=== PATIENT | male | born 1995 | race Caucasian/White ===

== ENCOUNTER 2018-02-18 12:01 | Inpatient (IN) | payer OTHER ==
[2018-02-18] VITALS (9 sets, daily range): BP systolic 156–177; BP diastolic 80–116
[~2018-02-18] VITALS: Ht 177.8 cm; Wt 57.2 kg
[~2018-02-18 12:01] MED LIST: NORCO 5-325 TA1 EACH PO
[2018-02-18 13:44] LABS: ABSOLUTE NEUTROPHILS 16.9 thou/uL (1.4-8.2); BASOPHILS 0.2 % (0.0-2.0); EOSINOPHILS 0.2 % (0.0-3.0); HEMOGLOBIN 16.3 gm/dL (14.0-18.0); LYMPHOCYTES 7.3 % (24.0-44.0); MCH 33.5 pg (26.0-34.0); MCHC 34.7 g/dL (28.0-37.0); MCV 96.6 fL (80.0-100.0); MONOCYTES 5.4 % (1.0-8.0); PLATELET COUNT 265 thou/uL (150-400); POLYS 86.9 % (36.0-66.0); RBC 4.87 mil/uL (4.50-6.00); RDW 12.3 % (10.5-14.5); WBC 19.4 thou/uL (4.0-11.0)
[2018-02-18 13:47] LABS: ANION GAP 15 mmol/L (7-16); BUN 14 mg/dL (7-18); CALCIUM 9.9 mg/dL (8.5-10.1); CHLORIDE 96 mmol/L (98-107); CO2 24 mmol/L (21-32); CREATININE 1.1 mg/dL (0.7-1.3); GLUCOSE 212 mg/dL (74-106); POTASSIUM 3.9 mmol/L (3.5-5.1); SODIUM 135 mmol/L (136-145)
[2018-02-18 13:53] LABS: ALBUMIN 4.6 g/dL (3.4-5.0); LIPASE 77 U/L (73-393); MAGNESIUM 2.2 mg/dL (1.8-2.4); SALICYLATE < 2.8 mg/dL (2.8-20.0); SGOT 51 U/L (15-37); SGPT 39 U/L (30-65); TOTAL BILIRUBIN 1.2 mg/dL (<0.1-1.0); TOTAL PROTEIN 8.4 g/dL (6.4-8.2)
[2018-02-18 14:23] LABS: URINE BILIRUBIN NEGATIVE (Negative); URINE BLOOD TRACE (Negative); URINE CLARITY CLEAR; URINE COLOR YELLOW; URINE GLUCOSE-RANDOM* TRACE (Negative); URINE KETONES TRACE (Negative); URINE LEUKOCYTES-REFLEX NEGATIVE (Negative); URINE NITRITE-REFLEX NEGATIVE (Negative); URINE PROTEIN (DIPSTICK) 1+ (Negative); URINE SPECIFIC GRAVITY > 1.030 (1.005-1.035); URINE UROBILINOGEN 0.2 E.U./dl (0.2-1.0)
[2018-02-18 14:33] LABS: AMP/METHAMP Negative (Negative); BARBITURATES Negative (Negative); BENZODIAZEPINES Negative (Negative); COCAINE Negative (Negative); CRYSTALS None Seen /LPF (None Seen); METHADONE Negative (Negative); OPIATES POSITIVE (Negative); PCP Negative (Negative); SQUAMOUS None Seen /LPF (0-3)
[2018-02-18 14:34] LABS: BACTERIA-REFLEX 1-9 Few /HPF (None Seen); HYALINE CASTS 0-3 Few /LPF (None Seen); URINE RBC 0-2 Rare /HPF (0-2); URINE WBC-REFLEX None Seen /HPF (0-5)
[2018-02-18 15:21] LABS: PHOSPHORUS 3.8 mg/dL (2.5-4.9)
[2018-02-18 16:13] LABS: FOLIC ACID > 100.0 ng/mL (8.6-58.9)
--- NOTE | 2018-02-18 16:15 | NUR ---
ADMIT NOTE PT HAS DILOCATION OF BILATERAL SHOULDERS AND SEIZURE STATUS POST DRINKING 6-7 BEERS DAILY FOR PAST 3 MONTHS. CONSULTS PLACED ORDER. LUNGS ARE CLEAR. ON ROOM AIR. SINUS TACHYCARDIA ON THE MONITOR. BLOOD PRESSURE ELEVATED. NOTIFIED ADMITING DOCTOR OF BLOOD PRESSURE. SCDS ON BILATERAL. FALL SOCKS ON AND FALL BAND ON PT AT THIS TIME. PADDED SIDE RAILS. CALL LIGHT WITHIN REACH IF NEEDS ASSISTANCE. WILL CONTINUE TO ASSESS AND MONITOR FOR ALCOHOL WITHDRAWL PER SCALE PER NURSING AT THIS TIME. WILL KEEP NPO AT THIS TIME FOR SURGERY
--- NOTE | 2018-02-18 17:14 | NUR ---
TAKEN TO OR ROOM FOR SURGERY. PT'S FATHER ACCOMPANYING PT TO WAITING AREA.
--- NOTE | 2018-02-18 19:30 | NUR ---
Pt is back to room S/P Closed reduction bilateral shoulders dislocation. AAOx4, no s/sx of any distress indicates. Both shoulder are swelling. Rt more than left. Arm slings in used. Ice packs applied to both shoulder for comfort. Denies of any pain upon arrival. CIWA 3 upon arrival,report last drank was a couple days ago. Seizer precaution inplace. Continue to monitor any changes.
[2018-02-19] VITALS (19 sets, daily range): BP systolic 118–185; BP diastolic 68–93
--- NOTE | 2018-02-19 01:30 | NUR ---
Pt 's HR went up ton 140's to 150's with activity noted. Denies symptoms. BP elevated. He was given hydralazine earlier with very little effects. Will notify [facility].
[2018-02-19 03:48] LABS: HEMATOCRIT 37.4 % (42.0-52.0); MCHC 34.3 g/dL (28.0-37.0); MCV 96.3 fL (80.0-100.0); RBC 3.89 mil/uL (4.50-6.00); RDW 12.3 % (10.5-14.5); WBC 11.4 thou/uL (4.0-11.0)
[2018-02-19 03:59] LABS: HEMOGLOBIN 12.8 gm/dL (14.0-18.0)
[2018-02-19 04:04] LABS: ALBUMIN 3.5 g/dL (3.4-5.0); CREATININE 0.8 mg/dL (0.7-1.3); MAGNESIUM 1.8 mg/dL (1.8-2.4); TOTAL BILIRUBIN 1.1 mg/dL (<0.1-1.0); TOTAL PROTEIN 6.6 g/dL (6.4-8.2)
--- NOTE | 2018-02-19 06:07 | NUR ---
No changes from last assessment. Continue to monitor any changes.
--- NOTE | 2018-02-19 06:10 | NUR ---
Pt's BP ahd HR has improved after Lopressor IV. CIWA 4 this am. No seizure activity noted in this shift.
--- NOTE | 2018-02-19 08:04 | HC ---
[facility] [place] [address] CONSULTATION Name: MUKUND CRAMER Room #: 246-P ADM IN M.R.#: [id number] Admission: 02/18/18 Attend Phys: Robert Lewis MD Discharge: Date of : 89 Report #: [id number] THIS REPORT FOR: //name// CC: ANJELICA physician/PCP Robert Lewis DATE OF SERVICE: 02/18/2018 CHIEF COMPLAINT: Bilateral shoulder dislocation. HISTORY OF PRESENT ILLNESS: This 22-year-old gentleman apparently had a seizure today as a result of alcohol withdrawal. Subsequently, he has bilateral shoulder pain and x-rays in the Emergency Department confirmed bilateral anterior shoulder dislocation. He has had one dislocation on the right side for a similar seizure about 6 months ago. He has not had previous shoulder injuries. At the time of my evaluation, he is alert and oriented and accompanied by his father. We have discussed his history and current findings. I have explained that there does appear to be greater tuberosity fractures on the right side and possibly as well on the left. I think closed reduction under brief anesthetic will be most appropriate. I would suggest doing this in the operating room, where we have better control given his recent seizures. Clinically, both shoulders are obviously dislocated anteriorly with some deformity. Neurologic and vascular status of both upper extremities seems to be normal. He denies any other areas of discomfort and in general, the clinical exam involving the neck, back and both lower extremities appear to be normal. X-rays of both shoulders confirm anterior dislocation with some impaction fracture, consistent with Hill-Sachs deformity and possibly greater tuberosity fracture on the right side. Pending OR availability and anesthesia consultation, our plan is to go ahead with bilateral shoulder reduction under anesthesia today. <ELECTRONICALLY SIGNED> By: Tu Taylor MD 02/19/18 0804 [id number] 0016 Tu Taylor MD /nt
--- NOTE | 2018-02-19 08:04 | O ---
[facility] [place] [address] OPERATIVE REPORT Name: MUKUND CRAMER Room #: 246-P ADM IN M.R.#: [id number] Admission: 02/18/18 Attend Phys: Robert Lewis MD Discharge: Date of : 89 Report #: [id number] THIS REPORT FOR: //name// CC: [facility] physician/PCP Robert Lewis DATE OF SERVICE: 02/18/2018 PREOPERATIVE DIAGNOSIS: Bilateral shoulder dislocation. POSTOPERATIVE DIAGNOSIS: Bilateral shoulder dislocation. PROCEDURE: Closed reduction, bilateral shoulder dislocation under anesthesia. SURGEON: Tu Taylor M.D. INDICATIONS: This 22-year-old gentleman apparently developed a seizure as a result of alcohol withdrawal. This resulted in bilateral shoulder dislocation. We have elected to go ahead with reduction under anesthesia. PROCEDURE: The patient was placed under deep sedation with propofol and narcotics. A satisfactory relaxation was accomplished. Both shoulders were then gently manipulated. Reduction was accomplished, but with some difficulty, consistent with probable impaction Hill-Sachs deformities in both shoulders. Using C-arm for visualization, both shoulders were reduced in a satisfactory fashion. Both arms were then protected with arm sling protection. The patient was then awakened and returned to the recovery room in satisfactory condition. <ELECTRONICALLY SIGNED> By: Tu Taylor MD 02/19/18 0804 [id number] 0020 Tu Taylor MD /nt
--- NOTE | 2018-02-19 09:10 | NUR ---
Assess due to low BMI 18.2. Admitted with bilateral shoulder dislocation, seizure activity and etoh abuse. Currently in ICU, sleeping and unable to respond to any questions. NPO, for surgical intervention. Unsure of wt or intake hx. Has orders for vitamin and thiamine, and psych consult. Low nutrition risk at this time. Follow for timely diet advance.
[2018-02-19] MEDS ORDERED: PEPCID20 MG PO (13:47)
[2018-02-19] MEDS ORDERED: NORCO 5-325 TA1 EACH PO (13:48)
--- NOTE | 2018-02-19 17:00 | NUR ---
Met with patient who is 22 lives with his father, and grandmother. Patient admits with seizure ETOH withdraw. Sp with Dr Bello who reports patient not interested in AA/ETOH tx programs at this time. Plan to place numbers in dc instructions for patient. Patient to f/u with ortho on outpatient basis for shoulder dislocation. Patient currently no working. Lost his job 3 days before vernon. Patient given safety net clinic information.
[2018-02-20] VITALS (14 sets, daily range): BP systolic 114–138; BP diastolic 72–96
--- NOTE | 2018-02-20 01:06 | NUR ---
ASSUMED CARE OF PT AT 1900. PT RESTLESS AT THE TIME-TOSSING AND TURNING IN BED. PT APPEARS SOMEWHAT ANXIOUS, BUT STATES THAT HE IS FINE. CIWA SCORE EVALUATED Q4H, HIGHEST CIWA THIS SHIFT IS 6. PT GIVEN ATIVAN 1 MG X1 PO. BP STABLE; HEART RHYTHM IS SINUS RHYTHM, EXCEPT WITH ACTIVITY, PT BECOMES TACHYCARDIC. PT HAS SOME DISCOMFORT IN SHOULDERS, BUT DENIES ANY PAIN. PT WILL MOST LIKELY DC TOMORROW. PT ALREADY HAS DC ORDERS, BUT PSYCH RECOMMENDED HE STAY ANOTHER NIGHT SINCE PT HAD BEEN GETTING LOTS OF IV ATIVAN. PT HAS NOT HAD IV ATIVAN SINCE 1400 YESTERDAY AND HAS ONLY HAD ONE DOSE OF PO ATIVAN SINCE THEN. WILL CONTINUE TO MONITOR.
--- NOTE | 2018-02-20 04:56 | NUR ---
AROUND 0230, PT WOKE UP CONFUSED AND DISORIENTED. HE DID NOT KNOW WHERE HE WAS OR HOW HE GOT HERE. PT WAS REORIENTED, BUT WAS STILL CONFUSED BY HIS SURROUNDINGS. HE BECAME SOMEWHAT AGITATED AND GOT OUT OF BED AND WANTED TO GET SOMETHING OUT OF THE CABINET. PT FINALLY GOT BACK IN BED AND GIVEN A DOSE OF ATIVAN. CIWA WAS 11. BY 0400, PT WAS ORIENTED AGAIN WITH MINIMAL CONFUSION. CIWA WAS 4. PT IS NOW RESTING CALMLY IN BED. WILL CONTINUE TO MONITOR.
[2018-02-20 06:07] LABS: CALCIUM 8.9 mg/dL (8.5-10.1); CREATININE 0.8 mg/dL (0.7-1.3); MAGNESIUM 1.8 mg/dL (1.8-2.4); PHOSPHORUS 3.4 mg/dL (2.5-4.9); POTASSIUM 3.5 mmol/L (3.5-5.1)
--- NOTE | 2018-02-20 13:00 | NUR ---
PT CARE ASSUMED 1245 UPON TRASFER FROM ICU. PT ALERT AND ORIENTED X4. DENIES PAIN AND SOA. SR ON DIRECTOR GOVERNMENT. VSS. NO ANXIETY OR CONFUSION NOTED AT THIS TIME. PT DENIES NAUSEA, NO NOTED TREMORS OR HALLUCINATIONS AT THIS TIME. UP WITH STEADY GAIT BUT WILL MAINTAIN SBA FOR SAFETY. IV NS RESUMED. PT APPETITE GOOD.
--- NOTE | 2018-02-20 13:52 | NUR ---
ASSUMED CARE OF PATIENT AT 0700, PT IS A/O TIMES FOUR, PT CONT ON CIWA PROTOCOL. PT WITH ST ON THE MONTIOR. ORDERS RCVD TO TRANSFER PT OUT OF ICU. REPORT CSLLED AND GIVE TO RECIEVING NURSE.
--- NOTE | 2018-02-20 17:02 | NUR ---
PT VS REMAIN WNL. PT DENIES PAIN AND SOA. CALLING FOR ASSISTANCE APPROPRIATELY. NO ISSUES OR DISTRESS NOTED.
[2018-02-21 03:58] VITALS: BP 135/91
--- NOTE | 2018-02-21 04:07 | NUR ---
SLEPT MOST OF SHIFT. ASSISTED UP TO BATHROOM WITH STEADY GAIT. MAINTAIN SAFE ENVIRONMENT. CWAW REMAINS 0. DENIES COMPLAINTS OF PAIN OR AGITATION. PATIENT CALM AND COOPERATIVE. NO TREMORS NOTED. TELEMETRY SHOWS SR, BUT WHEN UP TO BATHROOM OR USING URINAL ST 110-130'S. QUICKLY RECOVERS WHEN BACK TO BED. WORKING ON GOALS AND PLAN OF CARE FOR NOC. PROGRESSING SLOWLY TOWARDS DISCHARGE GOALS. CONTINUE TO ASSES CLOESLY.
[2018-02-21 08:09] VITALS: BP 119/84
[2018-02-21 11:48] VITALS: BP 119/87
--- NOTE | 2018-02-21 13:29 | NUR ---
PT IS MEETING LISTED POC GOALS. NO C/O OF PAIN, N/V, OR DISCOMFORT THIS SHIFT. CIWA IS 0. IVF AND MONITOR DISCONTINUED. PT DISCHARGED HOME AFTER INSTRUCTIONS AND PRESCRIPTIONS GIVEN. PT EXPRESSES UNDERSTANDING OF DISCHARGE INSTRUCTIONS AND FOLLOW UP. PT DISCHARGED OFF OF UNIT AT 1330.
== END 2018-02-21 13:35 | disposition home or self-care (01) | DRG 512 ==
LOC: ER 12:01 → EROBS 14:29 → ICU 15:25 → 3W 02-20 12:57
PROVIDERS: Emergency Medicine; ADMIT Internal Medicine
DX: S43.004A Unspecified dislocation of right shoulder joint, initial encounter (principal); S43.005A Unspecified dislocation of left shoulder joint, initial encounter; F12.90 Cannabis use, unspecified, uncomplicated; F10.10 Alcohol abuse, uncomplicated; F17.210 Nicotine dependence, cigarettes, uncomplicated; I10 Essential (primary) hypertension; D72.829 Elevated white blood cell count, unspecified; W07.XXXA Fall from chair, initial encounter; Y93.89 Activity, other specified; Y92.89 Other specified places as the place of occurrence of the external cause; Y99.8 Other external cause status; Z28.21 Immunization not carried out because of patient refusal
CPT/HCPCS: 10078; 10779; 50010; 50101; 62110; 62900; 70005

== ENCOUNTER 2018-03-13 05:45 | Day surgery (SDC) | payer SELFPAY ==
[~2018-03-13] VITALS: Ht 177.8 cm; Wt 61.2 kg
--- NOTE | ~2018-03-13 | O ---
[facility] [place] [address] OPERATIVE REPORT Name: MUKUND CRAMER Room #: 150-6 [facility] M.R.#: [id number] Admission: 03/13/18 Attend Phys: Patric Wynne Discharge: Date of : 89 Report #: [id number] THIS REPORT FOR: //name// CC: ANJELICA physician/PCP Patric Restrepo DATE OF SERVICE: 03/13/2018 PREOPERATIVE DIAGNOSES: Right shoulder fracture dislocation, Bankart lesion, large engaging Hill-Sachs lesion and greater tuberosity fracture. POSTOPERATIVE DIAGNOSES: Right shoulder fracture dislocation following seizure with large engaging Hill-Sachs lesion of humeral head, bony Bankart lesion and glenoid bone loss of the anterior glenoid, extensive anterior labral tear, greater tuberosity fracture and intra-articular loose bodies. PROCEDURES PERFORMED: Right shoulder arthroscopy, anterior labral repair with capsular plication, remplissage of Hill-Sachs lesion of humeral head, extensive debridement, removal of loose bodies and closed reduction of glenohumeral joint. SURGEON: Patric Restrepo M.D. MANAGER DEVELOPMENT: Carol Calvo PA-C. ANESTHESIA: General with preoperative ultrasound-guided interscalene block. FLUIDS: 800 mL of crystalloid. ESTIMATED BLOOD LOSS: Negligible. DESCRIPTION OF PROCEDURE: After proper identification of the patient and operative site in the preoperative holding area, the operative site was signed by myself. Prophylactic antibiotics given. The patient elected to receive an ultrasound-guided interscalene block by Dr. Nunez after reviewing the risks, benefits, alternatives and complications with anesthesia. Preoperatively, it was noted the patient had paresthesias of the more posterior and lateral shoulder. His motion was limited due to pain and has dislocation that had been present for the last several weeks. He reported intact sensation distally and I was able to minimally flex and extend his fingers and wrist. After a satisfactory block, he was brought back to the operative suite. After induction of satisfactory general anesthesia, his right shoulder was closed reduced. There was a propensity for it to want to externally rotate and fall back into a dislocated position anteriorly. The left shoulder remained reduced and he was carefully positioned in the left lateral decubitus position. Guzman bag and extra roll were utilized to support the torso. Right shoulder was [address] [address] OPERATIVE REPORT Name: MUKUND CRAMER Room #: 150-6 [facility] Nara#: [id number] Admission: 03/13/18 Attend Phys: Patric Wynne Discharge: Date of : 89 Report #: [id number] sterilely prepped and draped in the usual manner and placed in 10 pounds of balanced arthroscopic suspension. Posterior portal was established. Joint was inflated with an arthroscopic pump set at 40 mmHg. Hemarthrosis was carefully evacuated. An anterior-superior portal was created as well as an anterior-inferior portal. Examination of the glenohumeral joint revealed a large engaging Hill-Sachs lesion with pronounced impaction. There was anterior glenoid bone loss with approximately 2 mm of bone noted anterior to the bare spot. The patient had a displaced and medialized labral tear with some resultant bony remnants and tissues as well as multiple intra-articular bony and chondral loose bodies that were removed. Loose chondral flaps and fibrillation along the anterior glenoid rim as well as superiorly along the humeral head were carefully debrided. Long head of biceps tendon appeared intact. Subscapularis appeared intact. The greater tuberosity fracture which had mild displacement noted on the preoperative radiographs appeared to be stable with probing and reasonably well positioned with the arthroscopic visualization. At this point, the anterior labrum extending inferiorly was carefully released from its medialized position. The anterior glenoid neck and labrum were carefully debrided of the fibrillated soft tissues. This was able to be mobilized both laterally and superiorly, and a total of four 2.9-mm SwiveLock anchors with FiberTape were utilized starting inferiorly while mobilizing the labrum both superiorly and laterally. This was reduced to the anterior glenoid neck nicely. The anterior band of the inferior glenohumeral ligament was captured with the inferior 2 sutures to try and plicate this. Again there was a thin glenoid rim inferiorly. Posteriorly, the posterior labrum was intact as well as the superior labrum and its insertion of the biceps tendon had some fraying which was debrided, but was otherwise intact. Next, a remplissage maneuver was performed with the infraspinatus to fill-in this defect posteriorly. A fairly vertical shear-type impaction fracture was noted and at first, a 3.9-mm Arthrex PEEK knotless corkscrew anchors were utilized, but one of these pulled out even though the bone quality appeared good. So, these were replaced with 4.75-mm double-loaded SwiveLock anchors and utilizing a double yogi technique, both suture pairs from the anchor were utilized for the remplissage maneuver. This was done after the subacromial space had been freed and cleared of the very thickened subacromial bursa. From the bursal surface, the rotator cuff appeared intact and the tuberosity reduced in a satisfactory position. Intraoperative C-arm revealed impaction and displacement of the tuberosity, but it appeared stable in its position and I can see really any benefit of trying to expose this further and then put the anchors around it. The shoulder was reduced. It was stable, especially in a more adducted position and internal rotation and the intraoperative radiographs helped visualize the bony portion of the tuberosity position. Shoulder was thoroughly irrigated with normal saline. Portals were closed with simple nylon stitches. He was placed in a sling and abduction pillow and [facility] [address] [place] [address] OPERATIVE REPORT Name: MUKUND CRAMER Room #: 150-6 [facility] Nara#: [id number] Admission: 03/13/18 Attend Phys: Patric Wynne Discharge: Date of : 89 Report #: [id number] internal rotation of the left shoulder upon awakening. He was also placed throughout range of motion and was noted to be continued to be in a reduced position. At this point, he was awakening in the operative suite, with anticipated discharge to the recovery room in stable condition. Qualified traffic assistant utilized throughout the entire procedure to aid in patient limb positioning, visualization with the arthroscope instrument and suture passage as well as closure and sling application. By: [id number] Patric Restrepo MD /manuela
[~2018-03-13 05:45] MED LIST changes: +PEPCID20 MG PO
[2018-03-13 08:12] VITALS: BP 122/81
[2018-03-13 10:51] VITALS: BP 122/81
== END 2018-03-13 11:35 | disposition home or self-care (01) ==
LOC: TBA 05:45 → OR 05:45 → TBA 06:01 → OR 11:35
DX: S43.014A Anterior dislocation of right humerus, initial encounter (principal); S42.251A Displaced fracture of greater tuberosity of right humerus, initial encounter for closed fracture; S43.491A Other sprain of right shoulder joint, initial encounter; M24.011 Loose body in right shoulder; F17.210 Nicotine dependence, cigarettes, uncomplicated; Z98.890 Other specified postprocedural states; X58.XXXA Exposure to other specified factors, initial encounter; Y93.89 Activity, other specified; Y92.89 Other specified places as the place of occurrence of the external cause; Y99.8 Other external cause status
CPT/HCPCS: 50010; 50101; 50172; 50386; 50417; 50935; 51038; 51320; 51445; 51847; 52001; 52282; 53610; 54170; 55430; 56525; 56527; 56530; 57103; 62110; 62900; 64043; 65060; 70005

== ENCOUNTER 2019-09-22 14:12 | Emergency (ER) | payer OTHER ==
[~2019-09-22] VITALS: Ht 177.8 cm; Wt 61.2 kg
[2019-09-22 15:25] LABS: HEMATOCRIT 48.8 % (42.0-52.0); HEMOGLOBIN 16.6 gm/dL (14.0-18.0); MCH 33.7 pg (26.0-34.0); MCHC 34.1 g/dL (28.0-37.0); MCV 98.8 fL (80.0-100.0); PLATELET COUNT 156 thou/uL (150-400); RBC 4.94 mil/uL (4.50-6.00); RDW 12.6 % (10.5-14.5); WBC 6.5 thou/uL (4.0-11.0)
[2019-09-22 15:30] LABS: CALCIUM 8.9 mg/dL (8.5-10.1); CREATININE 0.8 mg/dL (0.7-1.3); POTASSIUM 3.8 mmol/L (3.5-5.1)
[2019-09-22 15:36] LABS: ALBUMIN 4.8 g/dL (3.4-5.0); DIRECT BILIRUBIN 0.1 mg/dL (<0.1-0.2); TOTAL BILIRUBIN 0.8 mg/dL (0.2-1.0); TOTAL PROTEIN 8.3 g/dL (6.4-8.2)
[2019-09-22 15:47] LABS: AMP/METHAMP Negative (Negative); BARBITURATES Negative (Negative); BENZODIAZEPINES Negative (Negative); COCAINE Negative (Negative); METHADONE Negative (Negative); OPIATES Negative (Negative); PCP Negative (Negative)
[2019-09-22 16:33] LABS: ABSOLUTE NEUTROPHILS 4.7 thou/uL (1.4-8.2); ANISOCYTOSIS 1+
[2019-09-22 17:46] VITALS: BP 129/82
== END 2019-09-22 17:46 | disposition home or self-care (01) ==
LOC: ER 14:12
PROVIDERS: Emergency Medicine
DX: F10.920 Alcohol use, unspecified with intoxication, uncomplicated (principal); R25.1 Tremor, unspecified; R11.0 Nausea; F17.210 Nicotine dependence, cigarettes, uncomplicated; Z79.899 Other long term (current) drug therapy; Y90.8 Blood alcohol level of 240 mg/100 ml or more

== ENCOUNTER 2019-09-24 06:56 | Emergency (ER) | payer OTHER ==
[~2019-09-24] VITALS: Ht 177.8 cm; Wt 56.7 kg
[2019-09-24 07:14] LABS: URINE BILIRUBIN NEGATIVE (Negative); URINE BLOOD 1+ (Negative); URINE CLARITY CLEAR; URINE COLOR YELLOW; URINE GLUCOSE-RANDOM* NEGATIVE (Negative); URINE KETONES TRACE (Negative); URINE LEUKOCYTES-REFLEX NEGATIVE (Negative); URINE NITRITE-REFLEX NEGATIVE (Negative); URINE PROTEIN (DIPSTICK) TRACE (Negative); URINE SPECIFIC GRAVITY <= 1.005 (1.005-1.035); URINE UROBILINOGEN 0.2 E.U./dl (0.2-1.0)
[2019-09-24 07:21] LABS: AMP/METHAMP Negative (Negative); BARBITURATES Negative (Negative); BENZODIAZEPINES Negative (Negative); COCAINE Negative (Negative); METHADONE Negative (Negative); OPIATES Negative (Negative); PCP Negative (Negative)
[2019-09-24 07:27] LABS: BACTERIA-REFLEX None Seen /HPF (None Seen); CASTS None Seen /LPF (None Seen); CRYSTALS None Seen /LPF (None Seen); SQUAMOUS 0-3 Few /LPF (0-3); URINE RBC None Seen /HPF (0-2); URINE WBC-REFLEX 0-5 Rare /HPF (0-5)
[2019-09-24 07:28] LABS: HEMATOCRIT 48.3 % (42.0-52.0); HEMOGLOBIN 16.5 gm/dL (14.0-18.0); MCH 34.1 pg (26.0-34.0); MCHC 34.2 g/dL (28.0-37.0); MCV 99.7 fL (80.0-100.0); PLATELET COUNT 164 thou/uL (150-400); RBC 4.85 mil/uL (4.50-6.00); RDW 12.5 % (10.5-14.5); WBC 8.8 thou/uL (4.0-11.0)
[2019-09-24 07:36] LABS: ANION GAP 15 mmol/L (7-16); BUN 7 mg/dL (7-18); CHLORIDE 94 mmol/L (98-107); CO2 27 mmol/L (21-32); CREATININE 0.9 mg/dL (0.7-1.3); GLUCOSE 112 mg/dL (74-106); POTASSIUM 3.5 mmol/L (3.5-5.1); SODIUM 136 mmol/L (136-145)
[2019-09-24] MEDS ORDERED: NOHOMEMEDICATIONS (07:38)
[2019-09-24 07:49] LABS: ALBUMIN 5.2 g/dL (3.4-5.0); MAGNESIUM 2.2 mg/dL (1.8-2.4); SGOT 131 U/L (15-37); SGPT 146 U/L (30-65); TOTAL BILIRUBIN 1.5 mg/dL (0.2-1.0); TOTAL PROTEIN 9.1 g/dL (6.4-8.2); TROPONIN-I <0.06 ng/mL (<0.06)
[2019-09-24] MEDS ORDERED: ATIVAN2 MG PO ×2 (08:47→08:52)
[2019-09-24 09:01] VITALS: BP 147/79
[2019-09-24 10:20] LABS: ABSOLUTE NEUTROPHILS 5.8 thou/uL (1.4-8.2); ATYPICAL LYMPHS 1 %
--- NOTE | 2019-09-27 07:58 | EKG ---
[facility] [place] [address] ELECTROCARDIOGRAM REPORT Name: MUKUND CRAMER Room #: DEP [facility]#: [id number] Admission: 09/24/19 Attend Phys: Discharge: 09/24/19 Date of : [birth year] Report #: [id number] THIS REPORT FOR: cc: ANJELICA - Dalia family physician/PCP ANJELICA - Dalia family physician/PCP Yonathan Cantu MD [facility] THIS REPORT FOR: //name// [facility] ED Test Date: 2019-09-24 Test Time: 07:11:24 Pat Name: MUKUND CRAMER Department: Room: Gender: Processing Engineer: LORI WATKINS : 1995 Requested By: Chicho Mendoza Order Number: [id number] MD: Yonathan Cantu Measurements Intervals [place] Rate: 101 P: 74 ME: 152 QRS: 63 QRSD: 92 T: 55 QT: 329 QTc: 427 Interpretive Statements Sinus tachycardia Probable left atrial enlargement RSR' in V1 or V2 No previous ECG available for comparison Electronically Signed On 09-27-2019 7:58:26 CDT by Yonathan Cantu [email or web address] <ELECTRONICALLY SIGNED> By: Yonathan Cantu MD, FACC 09/27/19 0758 0 Yonathan Cantu MD, [facility] /EPI
== END 2019-09-24 09:01 | disposition home or self-care (01) ==
LOC: ER 06:56
PROVIDERS: Emergency Medicine
DX: F10.239 Alcohol dependence with withdrawal, unspecified (principal); R07.89 Other chest pain; G44.209 Tension-type headache, unspecified, not intractable; R94.5 Abnormal results of liver function studies; F17.210 Nicotine dependence, cigarettes, uncomplicated; Y90.9 Presence of alcohol in blood, level not specified